=== PATIENT | female | born 1955 | race Hispanic/Latino ===

== ENCOUNTER 2019-04-27 06:20 | Day surgery (SDC) | payer OTHER ==
[2019-04-20 10:26] LABS: Absolute Lymphocytes (CBC) 1.3 K/uL (0.7-4.9); Absolute Monocytes 0.5 K/uL (0.1-1.3); Absolute Neutrophil 3.9 K/uL (1.8-8.0); Eosinophils % 2.8 % (0-4.4); Lymphocytes % 21.8 % (15.3-44.8); Monocytes % 8.3 % (3.3-12.3); RBC Red Blood Cell Count 4.38 M/uL (3.86-4.86)
[2019-04-20 10:32] LABS: BUN Blood Urea Nitrogen 11 mg/dL (7-18); Bicarbonate 30 mmol/L (21-32); Glucose Level 98 mg/dL (74-106); Potassium 3.6 mmol/L (3.5-5.1); Sodium Level 143 mmol/L (136-145)
[2019-04-20 10:34] LABS: Protime INR 0.92
--- NOTE | 2019-04-20 13:50 | EKG ---
Test Date: 2019-04-20 Test Time: 09:06:14 Sewing Department Supervisor: JOSUÉ MEASUREMENT RESULTS: Intervals: Rate: 62 CO: 152 QRSD: 82 QT: 436 QTc: 442 [place]: P: 10 CO: 152 QRS: 9 T: 27 INTERPRETIVE STATEMENTS: Normal sinus rhythm Cannot rule out Anterior infarct, age undetermined Abnormal ECG No previous ECG available for comparison Electronically Signed On 04-20-19 13:49:43 CDT by Robby Brown
[2019-04-27] MEDS ORDERED: BUPIVACAINE 0.25% PF 10 ML VIAL ONE (07:27)
[2019-04-27] MEDS ORDERED: PROPOFOL 200 MG/20 ML VIAL IV ONE (07:37)
[2019-04-27] MEDS ORDERED: ONDANSETRON 4 MG/2 ML VIAL ONE ×2 (07:37→09:54)
[2019-04-27] MEDS ORDERED: LIDOCAINE 2% MPF 5 ML VIAL ONE (07:37)
[2019-04-27] MEDS ORDERED: FENTANYL CITR 100 MCG/2 ML ONE (07:37)
[2019-04-27] MEDS ORDERED: MIDAZOLAM HCL 2 MG/2 ML INJ ONE (07:37)
--- NOTE | 2019-04-27 08:33 | P.BOP ---
Preoperative diagnosis: right knee lateral meniscus tear Postoperative diagnosis: same, right knee osteoarthritis Primary procedure: right knee arthroscopic partial lateral meniscectomy Secondary procedure: right knee arthroscopic chondroplasty patellofemoral joint Information Technology Director: NONE,NONE Estimated blood loss: 5 cc Specimen: none Findings: see dictation Anesthesia: General Complications: None Implants: none Fluids & blood products: per anesthesia record; TT: 25 mins @ 250 mmHg Transferred to: Recovery Room Condition: Good
[2019-04-27] MEDS ORDERED: SCOPOLAMINE HYDROBROMIDE PATCH TD ONE (08:46)
[2019-04-27] MEDS ORDERED: HYDROCODONE/APAP 7.5/325 MG TAB ONE (09:22)
--- NOTE | 2019-04-28 22:00 | OP ---
Date of Procedure: 04/27/2019 Surgeon: Antony Delgado MD Postoperative Diagnosis: Right knee lateral meniscus tear. Postoperative Diagnoses: 1.Right knee lateral meniscus tear. 2.Right knee chondromalacia patellofemoral joint. Procedures Performed: 1.Right knee arthroscopic partial lateral meniscectomy. 2.Right knee arthroscopic chondroplasty patellofemoral joint. Anesthesia: General LMA. Estimated Blood Loss: Less than 5 cc. Specimens: None. Complications: None. Implants: None. Fluids: Per Anesthesia record. Tourniquet Time: 45 minutes at 250 mmHg. Indication For Procedure: Ms. Willams is a 64-year-old female who presented to my clinic with signs, symptoms, and MRI findings consistent with a right knee lateral meniscus tear as well as right knee osteoarthritis. Given her mechanical symptoms, and failure of improvement with conservative treatmen t measures, I recommended operative treatment. Risks and benefits associated with operative treatmen t were discussed with the patient at length. She expressed understanding and elected to proceed with operative treatment. Description Of Procedure: After informed consent was obtained, the right lower extremity was marked in the preoperative holding area. The patient was then brought back to the operating room, transferr ed to the operating table in supine fashion, placed under general LMA anesthesia. The right lower ex tremity was then prepped and draped in usual sterile fashion. A time-out was initiated. The correct patient and procedure were confirmed and identified. The patient did receive her preop prophylactic antibiotics. The right lower extremity was then exsanguinated using an Esmarch, and the tourniquet was inflated to 250 mmHg. Standard anteromedial and anterolateral portals were created and a diagnos tic arthroscopy was performed. The arthroscope was brought into the patellofemoral joint. The patie nt was noted to have grade 3 chondromalacia changes of both the undersurface of patella and trochlear groove. A chondroplasty was performed on the undersurface of patella and trochlear groove using an arthroscopic shaver to stable cartilage borders and removing all loose chondral flaps. Arthroscope w as brought into both medial and lateral gutters. There were no loose bodies noted within the gutters . The arthroscope was then brought to the medial compartment. The patient was noted to have grade 3 chondromalacia changes on the medial femoral condyle. There was no significant chondromalacia of th e medial tibial plateau noted. The medial meniscus was found to be stable to probe. The arthroscope was brought into the intercondylar notch. The patient was noted to have intact ACL and PCL. The ar throscope was brought into the lateral compartment. The patient was noted to have a complex tear of the posterior horn of the lateral meniscus. There was significant amount of lateral meniscus tissue, which was seen within the posterior horn. The loose borders were then debrided using meniscal biter s and an arthroscopic shaver with some in the posterior lateral corner just in front of po pliteus. The remaining meniscal tissue was stable to probe. All loose was removed using an arthroscopic shaver. Arthroscopic instruments were then removed without complication. The wound was then irrigated with normal saline. Portals were approximated using a 4-0 Monocryl. Sterile dres sings were applied. Tourniquet was let down. The patient was awaken and transferred to PACU in stab le condition. Postoperative Plan: The patient will begin physical therapy per the patellofemoral protocol. She wi ll follow up in 2 weeks for wound check. GALE/MODL Voice ID: [id number] Report ID: [id number]
== END 2019-04-27 10:20 | disposition home or self-care (01) ==
LOC: OR 06:20
PROVIDERS: ATTEND Orthopaedic Surgery Sports Medicine
PROC: 0SBC4ZZ Excision of Right Knee Joint, Percutaneous Endoscopic Approach (ICD-10-PCS; principal; 2019-04-27 07:30)
DX: S83.281A Other tear of lateral meniscus, current injury, right knee, initial encounter (principal); M22.41 Chondromalacia patellae, right knee; M17.11 Unilateral primary osteoarthritis, right knee; I10 Essential (primary) hypertension; E78.00 Pure hypercholesterolemia, unspecified; E07.9 Disorder of thyroid, unspecified; Z98.84 Bariatric surgery status; Z80.9 Family history of malignant neoplasm, unspecified
CPT/HCPCS: 36415; 80048; 85025; 85610; 85730; 93005; J2250; J2405; J2704; J3010

== ENCOUNTER 2022-09-02 21:17 | Inpatient (IN) | payer OTHER ==
--- OUTSIDE RECORDS SUMMARY | 2022-09-02 21:22 | XMS REPORT | Continuity of Care Document ---
:1955 Author Organization [facility] t Address [address] [place] [address] Care Team Providers Name Role Phone Erik Snell Primary Care Physician MARC ROWAN Attending Clinician Unavailable Marc Rowan MD Attending Clinician Only, Adc Test Attending Clinician Unavailable Doctor Unassigned, [place] Attending Clinician Unavailable MARC ROWAN Admitting Clinician Unavailable Marc Rowan MD Admitting Clinician Payers Payer Name Policy Type Policy Effective Date Expiration Date Sour ce Number COMMERCIAL [id number] 2019 NON-CONTRACT 00:00:00 [employer] [id number] Common Spir it - [facility] Problems Condition Condition Condition Status Onset Resolution Last Treating Co mments Source Name Details Category Date Date Treatment Clinician Date Osteoarthr Osteoarthr Disease Active U nivers itis of itis of 8-09 ity of knee knee 00:00: [address] Branch [id number] Primary Problem Active Comm on osteoarthr Spirit itis of - [facility] right knee [facility] [id number] Other tear Problem Active Co mmon of lateral Spirit meniscus, - [facility] current [facility], [place] subsequent encounter [id number] Primary Problem Active Comm on osteoarthr Spirit itis of - [facility]I left knee [facility] Arthralgia Acute pain Problem Active C ommon of the of right Spirit lower leg knee - [facility] Allergies, Adverse Reactions, Alerts Allergy Allergy Status Severity Reaction(s) Onset Inactive Treating Comm ents Source Name Type Date Date Clinician NO KNOWN Drug Active Univers ALLERGIE Class ity of S [facility] Social History Social Habit Start Date Stop Date Quantity Comments Source History SDOH University o f Alcohol Frequency [place] [facility] History SDOH University o f Alcohol Std [place] [facility] Drinks Branch History SDOH University o f Alcohol Binge [place] [facility] Branch History of Common Spirit - Tobacco Use [facility] Sex Assigned At Common Sp roshni - [facility] Alcohol intake 2022-06-29 2022-06-29 Current drinker Unive rsity of 00:00:00 00:00:00 of alcohol [facility] (finding) Branch Alcohol Comment 2022-06-29 2022-06-29 rarely Universit y of 00:00:00 00:00:00 [facility] Exposure to 2022-06-14 2022-06-24 Not sure University of SARS-CoV-2 00:00:00 09:13:00 [facility] (event) [place] Tobacco use and 2022-06-09 2022-06-09 Smokeless tobacco Un iversity of exposure 00:00:00 00:00:00 non-user [facility] Smoking Status Start Date Stop Date Source Never Smoker [facility] Medications Ordered Filled Start Stop Current Ordering Indication Dosage Frequency Signature Comments Components Source Medication Medication Date Date Medication? Clinician (SIG) Name Name Hyalgan 20 Hyalgan 20 No 20mg C ommon mg mg 8-30 Spirit 00:00: - [facility] Hyalgan 20 Hyalgan 20 No 20mg C ommon mg mg 8-23 Spirit 00:00: - [facility] Hyalgan 20 Hyalgan 20 No 20mg C ommon mg mg 8-23 Spirit 00:00: - [facility] Bupivicaine Bupivicaine No 25mg [place] 8-16 Spirit 00:00: - [facility] Hyalgan 20 Hyalgan 20 No 20mg C ommon mg mg 8-16 Spirit 00:00: - [facility] 00 [facility] Kenalog Kenalog 2021-0 No 40mg Common (Triamcinol (Triamcinol 8-16 S pirit one) one) 00:00: - [facility]I 00 [facility] Bupivicaine Bupivicaine 2021-0 No 25mg Common [place] 8-16 Spirit 00:00: - [facility] 00 [facility] Hyalgan 20 Hyalgan 20 2021-0 No 20mg C ommon mg mg 8-16 Spirit 00:00: - [facility] 00 [facility] Kenalog Kenalog 2021-0 No 40mg Common (Triamcinol (Triamcinol 8-16 S pirit one) one) 00:00: - [facility]I 00 [facility] Hyalgan 20 Hyalgan 20 2021-0 No 20mg C ommon mg mg 8-16 Spirit 00:00: - [facility] Kenalog Kenalog 2021-0 No 40mg Common (Triamcinol (Triamcinol 8-16 S pirit one) one) 00:00: - [facility] Bupivicaine Bupivicaine 2021-0 No 25mg Common [place] 8-16 Spirit 00:00: - [facility] 00 [facility] simethicone 2021- No PRN, Unive rs (GAS RELIEF 06-29 Starting ity of (SIMETHICON 19:08: 19:25 on Tue Nolberto as E)) 40 00 :38 06/29/22 at Medical mg/0.6 mL 1408, Branch drops Until Tue06/29/22 at 1425, Routine, Intra-op lactated 2021- [facility] IV 06-29 mL/hr, ity of infusion 16:45: 16:54 1,000 mL, Nolberto as 1,000 mL 00 :00 IV Medical Infusion, Branch ONCE, 1 dose, On Tue06/29/22 at 1145, Routine, DSU Pre-op lactated 2021- No 1000[facility] ringers IV 06-29- mL/hr, ity of infusion 16:45: 16:54 1,000 mL, Nolberto as 1,000 mL 00 :00 IV Medical Infusion, Branch ONCE, 1 dose, On Tue06/29/22 at 1145, Routine, DSU Pre-op lisinopriL- 2021-0 Yes 1{tbl} Take 1 Un amee hydrochloro 8-09 tablet by ity of thiazide 15:14: mouth in [place] 20-25 mg 02 the Medical per tablet morning. Bran h amLODIPine 0 Yes 10mg Take 10 mg U nivers 10 mg 8-09 by mouth ity of tablet 15:14: in the [place] 02 morning. Medical Branch rosuvastati 0 Yes 5mg Take 5 mg U nivers n 5 mg 8-09 by mouth ity of tablet 15:14: in the [place] morning. Medical Branch escitalopra 0 Yes 10mg Take 10 mg Univers m oxalate 8-09 by mouth ity of 10 mg 15:14: in the [place] tablet 02 morning. Medical Branch meloxicam Yes 1{tbl} Take 1 Univ ers 7.5 mg 8-09 tablet by ity of tablet 15:14: mouth in [place] 02 the Medical morning. Branch levothyroxi Yes 50ug Take 50 Uni vers ne 50 mcg 8-09 mcg by ity of tablet 15:14: mouth [place] 02 every Medical morning. Branch lisinopriL- 0 Yes 1{tbl} Take 1 Un amee hydrochloro 8-09 tablet by ity of thiazide 15:14: mouth in [place] 20-25 mg 02 the Medical per tablet morning. Bran h amLODIPine Yes 10mg Take 10 mg U nivers 10 mg 8-09 by mouth ity of tablet 15:14: in the [place] morning. Medical Branch rosuvastati 0 Yes 5mg Take 5 mg U nivers n 5 mg 8-09 by mouth ity of tablet 15:14: in the [place] morning. Medical Branch escitalopra 0 Yes 10mg Take 10 mg Univers m oxalate 8-09 by mouth ity of 10 mg 15:14: in the [place] tablet 02 morning. Medical Branch meloxicam 0 Yes 1{tbl} Take 1 Univ ers 7.5 mg 8-09 tablet by ity of tablet 15:14: mouth in [place] 02 the Medical morning. [place] levothyroxi Yes 50ug Take 50 Uni vers ne 50 mcg 8-09 mcg by ity of tablet 15:14: mouth [place] 02 every Medical morning. [place] water for 2021- No PRN, Univers irrigation 06-29 Starting ity of irrigation 06:48: 19:25 on Tue s solution 00 :38 06/29/22 at Medica l 0148, Branch Until Tue06/29/22 at 1425, Routine, Intra-op levothyroxi Yes 50ug Take 50 Uni vers ne 50 mcg 8-04 mcg by ity of tablet 09:11: mouth [place] 16 every Medical morning. [place] levothyroxi 0 Yes 50ug Take 50 Uni vers ne 50 mcg 8-04 mcg by ity of tablet 09:11: mouth [place] 16 every Medical morning. [place] meloxicam Yes 1{tbl} Take 1 Univ ers 7.5 mg 8-04 tablet by ity of tablet 09:10: mouth in [place] 03 the Medical morning. [place] meloxicam 0 Yes 1{tbl} Take 1 Univ ers 7.5 mg 8-04 tablet by ity of tablet 09:10: mouth in [place] 03 the Medical morning. [place] lisinopriL- 0 Yes 1{tbl} Take 1 Un amee hydrochloro 8-04 tablet by ity of thiazide 09:08: mouth in [place] 20-25 mg 08 the Medical per tablet morning. [facility] amLODIPine 0 Yes 10mg Take 10 mg U nivers 10 mg 8-04 by mouth ity of tablet 09:08: in the [place] 08 morning. Medical Branch rosuvastati 0 Yes 5mg Take 5 mg U nivers n 5 mg 8-04 by mouth ity of tablet 09:08: in the [place] 08 morning. Medical Branch escitalopra 0 Yes 10mg Take 10 mg Univers m oxalate 8-04 by mouth ity of 10 mg 09:08: in the [place] tablet 08 morning. Medical Branch lisinopriL- 0 Yes 1{tbl} Take 1 Un amee hydrochloro 8-04 tablet by ity of thiazide 09:08: mouth in [place] 20-25 mg 08 the Medical per tablet morning. Bran h amLODIPine 2021-0 Yes 10mg Take 10 mg U nivers 10 mg 8-04 by mouth ity of tablet 09:08: in the [place] 08 morning. Medical Branch rosuvastati 2021-0 Yes 5mg Take 5 mg U nivers n 5 mg 8-04 by mouth ity of tablet 09:08: in the [place] 08 morning. Medical Branch escitalopra 2021-0 Yes 10mg Take 10 mg Univers m oxalate 8-04 by mouth ity of 10 mg 09:08: in the [place] tablet 08 morning. Medical Branch lisinopriL- 2021-0 Yes 1{tbl} Take 1 Un amee hydrochloro 7-21 tablet by ity of thiazide 10:47: mouth in [place] 20-25 mg 31 the Medical per tablet morning. Bran h amLODIPine 0 Yes 10mg Take 10 mg U nivers 10 mg 7-21 by mouth ity of tablet 10:47: in the [place] 31 morning. Medical Branch rosuvastati 2021-0 Yes 5mg Take 5 mg U nivers n 5 mg 7-21 by mouth ity of tablet 10:47: in the [place] 31 morning. Medical Branch escitalopra 2021-0 Yes 10mg Take 10 mg Univers m oxalate 7-21 by mouth ity of 10 mg 10:47: in the [place] tablet 31 morning. Medical Branch Hyalgan 20 Hyalgan 20 2020-11 No 20mg C ommon mg mg 11-29 Spirit 00:00: - [facility] Hyalgan 20 Hyalgan 20 2020-11 No 20mg C ommon mg mg 11-29 Spirit 00:00: - [facility] Hyalgan 20 Hyalgan 20 2020-11 No 20mg C ommon mg mg 11-29 Spirit 00:00: - [facility] Hyalgan 20 Hyalgan 20 2020-11 No 20mg C ommon mg mg 11-29 Spirit 00:00: - [facility] Hyalgan 20 Hyalgan 20 2020-11 No 20mg C ommon mg mg 11-29 Spirit 00:00: - [facility] Hyalgan 20 Hyalgan 20 2020-11 No 20mg C ommon mg mg 11-29 Spirit 00:00: - [facility] Hyalgan 20 Hyalgan 20 2020-11 No 20mg C ommon mg mg 11-22 Spirit 00:00: - [facility] Hyalgan 20 Hyalgan 20 2020-11 No 20mg C ommon mg mg 11-22 Spirit 00:00: - [facility] Hyalgan 20 Hyalgan 20 2020-11 No 20mg C ommon mg mg 11-22 Spirit 00:00: - [facility] Hyalgan 20 Hyalgan 20 2020-11 No 20mg C ommon mg mg 11-22 Spirit 00:00: - [facility] Hyalgan 20 Hyalgan 20 2020-11 No 20mg C ommon mg mg 11-22 Spirit 00:00: - [facility] Hyalgan 20 Hyalgan 20 2020-11 No 20mg C ommon mg mg 11-22 Spirit 00:00: - [facility] Hyalgan 20 Hyalgan 20 2020-11 No 20mg C ommon mg mg 0- Spirit 00:00: - [facility] Hyalgan 20 Hyalgan 20 2020-11 No 20mg C ommon mg mg 0- Spirit 00:00: - [facility] Hyalgan 20 Hyalgan 20 2020-11 No 20mg C ommon mg mg 0- Spirit 00:00: - [facility] Hyalgan 20 Hyalgan 20 2020-11 No 20mg C ommon mg mg 0- Spirit 00:00: - [facility] Hyalgan 20 Hyalgan 20 2020-11 No 20mg C ommon mg mg 0- Spirit 00:00: - [facility]I 00 [facility] Hyalgan 20 Hyalgan 20 2020-11 No 20mg C ommon mg mg 0- Spirit 00:00: - [facility] Kenalog Kenalog 0 No 40mg Common (Triamcinol (Triamcinol - S pirit one) one) 00:00: - [facility] Bupivicaine Bupivicaine No 2.5mg Common [place] - Spirit 00:00: - [facility] Kenalog Kenalog 2021-0 No 40mg Common (Triamcinol (Triamcinol 8-31 S pirit one) one) 00:00: - [facility]I 00 [facility] Bupivicaine Bupivicaine 2020-0 No 2.5mg Common [place] 8-31 Spirit 00:00: - [facility]I 00 [facility] Kenalog Kenalog 2020-0 No 40mg Common (Triamcinol (Triamcinol 8-31 S pirit one) one) 00:00: - [facility]I 00 [facility] Bupivicaine Bupivicaine 2020-0 No 2.5mg Common [place] 8-31 Spirit 00:00: - [facility]I 00 [facility] Bupivicaine Bupivicaine 2020-0 No 2.5mg Common [place] 8-31 Spirit 00:00: - [facility]I 00 [facility] Kenalog Kenalog 2020-0 No 40mg Common (Triamcinol (Triamcinol 8-31 S pirit one) one) 00:00: - [facility]I 00 [facility] Bupivicaine Bupivicaine 2020-0 No 2.5mg Common [place] 8-31 Spirit 00:00: - [facility]I 00 [facility] Kenalog Kenalog 2020-0 No 40mg Common (Triamcinol (Triamcinol 8-31 S pirit one) one) 00:00: - [facility]I 00 [facility] Bupivicaine Bupivicaine 2020-0 No 2.5mg Common [place] 8-31 Spirit 00:00: - [facility]I 00 [facility] Kenalog Kenalog 2020-0 No 40mg Common (Triamcinol (Triamcinol 8-31 S pirit one) one) 00:00: - [facility]I 00 [facility] Hyalgan 20 Hyalgan 20 2020-0 No 20mg C ommon mg mg 3-08 Spirit 00:00: - [facility]I 00 [facility] Hyalgan 20 Hyalgan 20 2020-0 No 20mg C ommon mg mg 3-08 Spirit 00:00: - [facility]I 00 [facility] Hyalgan 20 Hyalgan 20 2020-0 No 20mg C ommon mg mg 3-08 Spirit 00:00: - [facility]I 00 [facility] Hyalgan 20 Hyalgan 20 2020-0 No 20mg C ommon mg mg 3 Spirit 00:00: - [facility] Hyalgan 20 Hyalgan 20 2020-0 No 20mg C ommon mg mg 3 Spirit 00:00: - [facility] Hyalgan 20 Hyalgan 20 2020-0 No 20mg C ommon mg mg 01-26 Spirit 00:00: - [facility] Hyalgan 20 Hyalgan 20 2020-0 No 20mg C ommon mg mg 3 Spirit 00:00: - [facility] Hyalgan 20 Hyalgan 20 2020-0 No 20mg C ommon mg mg 01-19 Spirit 00:00: - [facility] Hyalgan 20 Hyalgan 20 2020-0 No 20mg C ommon mg mg 01-19 Spirit 00:00: - [facility] Hyalgan 20 Hyalgan 20 2020-0 No 20mg C ommon mg mg 3 Spirit 00:00: - [facility] Hyalgan 20 Hyalgan 20 2020-0 No 20mg C ommon mg mg 01-19 Spirit 00:00: - [facility] Hyalgan 20 Hyalgan 20 2020-0 No 20mg C ommon mg mg 01-19 Spirit 00:00: - [facility] Bupivicaine Bupivicaine 2020-0 No 2.5mg Common [place] 2- Spirit 00:00: - [facility] Hyalgan 20 Hyalgan 20 2020-0 No 20mg C ommon mg mg 01-12 Spirit 00:00: - [facility] Kenalog Kenalog 2020-0 No 40mg Common (Triamcinol (Triamcinol 2-22 S pirit one) one) 00:00: - [facility] Bupivicaine Bupivicaine 2020-0 No 2.5mg Common [place] 2- Spirit 00:00: - [facility] Hyalgan 20 Hyalgan 20 2020-0 No 20mg C ommon mg mg 2 Spirit 00:00: - [facility] Kenalog Kenalog 2020-0 No 40mg Common (Triamcinol (Triamcinol 2-22 S pirit one) one) 00:00: - [facility]I 00 [facility] Bupivicaine Bupivicaine 2020-0 No 2.5mg Common [place] 2-22 Spirit 00:00: - [facility]I 00 [facility] Hyalgan 20 Hyalgan 20 2020-0 No 20mg C ommon mg mg 2-22 Spirit 00:00: - [facility]I 00 [facility] Kenalog Kenalog 2020-0 No 40mg Common (Triamcinol (Triamcinol 2-22 S pirit one) one) 00:00: - [facility]I 00 [facility] Bupivicaine Bupivicaine 2020-0 No 2.5mg Common [place] 2-22 Spirit 00:00: - [facility]I 00 [facility] Hyalgan 20 Hyalgan 20 2020-0 No 20mg C ommon mg mg 2-22 Spirit 00:00: - [facility]I 00 [facility] Kenalog Kenalog 2020-0 No 40mg Common (Triamcinol (Triamcinol 2-22 S pirit one) one) 00:00: - [facility]I 00 [facility] Bupivicaine Bupivicaine 2020-0 No 2.5mg Common [place] 2-22 Spirit 00:00: - [facility] 00 [facility] Hyalgan 20 Hyalgan 20 2020-0 No 20mg C ommon mg mg 2-22 Spirit 00:00: - [facility]I 00 [facility] Kenalog Kenalog 2020-0 No 40mg Common (Triamcinol (Triamcinol 2-22 S pirit one) one) 00:00: - [facility]I 00 [facility] Bupivicaine Bupivicaine 2020-0 No 2.5mg Common [place] 2-22 Spirit 00:00: - [facility]I 00 [facility] Hyalgan 20 Hyalgan 20 2020-0 No 20mg C ommon mg mg 2-22 Spirit 00:00: - [facility]I 00 [facility] Kenalog Kenalog 2020-0 No 40mg Common (Triamcinol (Triamcinol 2-22 S pirit one) one) 00:00: - [facility]I 00 [facility] Hyalgan 20 Hyalgan 20 2019-0 No 20mg C ommon mg mg 8-04 Spirit 00:00: - [facility] Hyalgan 20 Hyalgan 20 2020-0 No 20mg C ommon mg mg 06-24 Spirit 00:00: - [facility] Hyalgan 20 Hyalgan 20 2020-0 No 20mg C ommon mg mg 06-24 Spirit 00:00: - [facility] Hyalgan 20 Hyalgan 20 2020-0 No 20mg C ommon mg mg 06-24 Spirit 00:00: - [facility] Hyalgan 20 Hyalgan 20 2020-0 No 20mg C ommon mg mg 06-24 Spirit 00:00: - [facility] Hyalgan 20 Hyalgan 20 2020-0 No 20mg C ommon mg mg 06-24 Spirit 00:00: - [facility] Hyalgan 20 Hyalgan 20 2020-0 No 2mL C ommon mg mg 06-17 Spirit 00:00: - [facility] Hyalgan 20 Hyalgan 20 2020-0 No 2mL C ommon mg mg 06-17 Spirit 00:00: - [facility] Hyalgan 20 Hyalgan 20 2020-0 No 2mL C ommon mg mg 06-17 Spirit 00:00: - [facility] Hyalgan 20 Hyalgan 20 2020-0 No 2mL C ommon mg mg 06-17 Spirit 00:00: - [facility] Hyalgan 20 Hyalgan 20 2020-0 No 2mL C ommon mg mg 06-17 Spirit 00:00: - [facility] Hyalgan 20 Hyalgan 20 2020-0 No 2mL C ommon mg mg 06-17 Spirit 00:00: - [facility] Kenalog Kenalog 2020-0 No 40mg Common (Triamcinol (Triamcinol 06-10 S pirit one) one) 00:00: - [facility] Hyalgan 20 Hyalgan 20 2020-0 No 2mL C ommon mg mg 06-10 Spirit 00:00: - [facility] Bupivicaine Bupivicaine 2020-0 No 4mL Common [place] 06-10 Spirit 00:00: - [facility] Kenalog Kenalog 2020-0 No 40mg Common (Triamcinol (Triamcinol 7-21 S pirit one) one) 00:00: - [facility]I 00 [facility] Hyalgan 20 Hyalgan 20 2020-0 No 2mL C ommon mg mg 06-10 Spirit 00:00: - [facility]I 00 [facility] Bupivicaine Bupivicaine 2020-0 No 4mL Common [place] 7- Spirit 00:00: - [facility]I 00 [facility] Kenalog Kenalog 2020-0 No 40mg Common (Triamcinol (Triamcinol 7-21 S pirit one) one) 00:00: - [facility]I 00 [facility] Hyalgan 20 Hyalgan 20 2020-0 No 2mL C ommon mg mg 06-10 Spirit 00:00: - [facility]I 00 [facility] Bupivicaine Bupivicaine 2020-0 No 4mL Common [place] 06-10 Spirit 00:00: - [facility]I 00 [facility] Kenalog Kenalog 2020-0 No 40mg Common (Triamcinol (Triamcinol 7-21 S pirit one) one) 00:00: - [facility]I 00 [facility] Hyalgan 20 Hyalgan 20 2020-0 No 2mL C ommon mg mg 06-10 Spirit 00:00: - [facility]I 00 [facility] Bupivicaine Bupivicaine 2020-0 No 4mL Common [place] 06-10 Spirit 00:00: - [facility]I 00 [facility] Kenalog Kenalog 2020-0 No 40mg Common (Triamcinol (Triamcinol 7-21 S pirit one) one) 00:00: - [facility]I 00 [facility] Bupivicaine Bupivicaine 2020-0 No 4mL Common [place] 06-10 Spirit 00:00: - [facility]I 00 [facility] Hyalgan 20 Hyalgan 20 2020-0 No 2mL C ommon mg mg 06-10 Spirit 00:00: - [facility]I 00 [facility] Bupivicaine Bupivicaine 2020-0 No 4mL Common [place] 06-10 Spirit 00:00: - [facility]I 00 [facility] Kenalog Kenalog 2020-0 No 40mg Common (Triamcinol (Triamcinol 7-21 S pirit one) one) 00:00: - [facility]I 00 [facility] Hyalgan 20 Hyalgan 20 2020-0 No 2mL C ommon mg mg 7-21 Spirit 00:00: - [facility]I 00 [facility] Kenalog Kenalog 2020-0 No 40mg Common (Triamcinol (Triamcinol 3-09 S pirit one) one) 00:00: - [facility]I 00 [facility] Bupivicaine Bupivicaine 2020-0 No 4mL Common [place] 3-09 Spirit 00:00: - [facility]I 00 [facility] Kenalog Kenalog 2020-0 No 40mg Common (Triamcinol (Triamcinol 3-09 S pirit one) one) 00:00: - [facility]I 00 [facility] Bupivicaine Bupivicaine 2020-0 No 4mL Common [place] 3-09 Spirit 00:00: - [facility]I 00 [facility] Kenalog Kenalog 2020-0 No 40mg Common (Triamcinol (Triamcinol 3-09 S pirit one) one) 00:00: - [facility]I 00 [facility] Bupivicaine Bupivicaine 2020-0 No 4mL Common [place] 3-09 Spirit 00:00: - [facility]I 00 [facility] Kenalog Kenalog 2020-0 No 40mg Common (Triamcinol (Triamcinol 3-09 S pirit one) one) 00:00: - [facility]I 00 [facility] Bupivicaine Bupivicaine 2020-0 No 4mL Common [place] 3-09 Spirit 00:00: - [facility]I 00 [facility] Bupivicaine Bupivicaine 2020-0 No 4mL Common [place] 3-09 Spirit 00:00: - [facility] 00 [facility] Kenalog Kenalog 2020-0 No 40mg Common (Triamcinol (Triamcinol 3-09 S pirit one) one) 00:00: - [facility]I 00 [facility] Bupivicaine Bupivicaine 2020-0 No 4mL Common [place] 3-09 Spirit 00:00: - [facility] 00 [facility] Kenalog Kenalog 2020-0 No 40mg Common (Triamcinol (Triamcinol 3-09 S pirit one) one) 00:00: - [facility]I 00 [facility] LIDOCAINE LIDOCAINE 2019-0 No 10mg Com mon HCL 10MG/ML HCL 10MG/ML 7-23 S pirit 00:00: - CHI 00 [facility] Kenalog Kenalog 2019-0 No 40mg Common (Triamcinol (Triamcinol 7-23 S pirit one) one) 00:00: - [facility]I 00 [facility] LIDOCAINE LIDOCAINE 2019-0 No 10mg Com mon HCL 10MG/ML HCL 10MG/ML 7-23 S pirit 00:00: - CHI 00 [facility] Kenalog Kenalog 2019-0 No 40mg Common (Triamcinol (Triamcinol 7-23 S pirit one) one) 00:00: - [facility] 00 [facility] LIDOCAINE LIDOCAINE 2019-0 No 10mg Com mon HCL 10MG/ML HCL 10MG/ML 7-23 S pirit 00:00: - [facility]I 00 [facility] Kenalog Kenalog 2019-0 No 40mg Common (Triamcinol (Triamcinol 7-23 S pirit one) one) 00:00: - [facility] 00 [facility] LIDOCAINE LIDOCAINE 2019-0 No 10mg Com mon HCL 10MG/ML HCL 10MG/ML 7-23 S pirit 00:00: - [facility]I 00 [facility] Kenalog Kenalog 2019-0 No 40mg Common (Triamcinol (Triamcinol 7-23 S pirit one) one) 00:00: - [facility] 00 [facility] LIDOCAINE LIDOCAINE 2019-0 No 10mg Com mon HCL 10MG/ML HCL 10MG/ML 7-23 S pirit 00:00: - [facility]I 00 [facility] Kenalog Kenalog 2019-0 No 40mg Common (Triamcinol (Triamcinol 7-23 S pirit one) one) 00:00: - [facility] 00 [facility] LIDOCAINE LIDOCAINE 2019-0 No 10mg Com mon HCL 10MG/ML HCL 10MG/ML 7-23 S pirit 00:00: - [facility] 00 [facility] Kenalog Kenalog 2019-0 No 40mg Common (Triamcinol (Triamcinol 7-23 S pirit one) one) 00:00: - [facility] 00 [facility] Levothyroxi Levothyroxi No ne Sodium ne Sodium Simvastatin Simvastatin No Meloxicam Meloxicam No 7.5 MG 7.5 MG Lisinopril- Lisinopril- No hydroCHLORO hydroCHLORO thiazide thiazide Valium Valium No amLODIPine amLODIPine No Besylate Besylate Meloxicam Meloxicam No amLODIPine amLODIPine No amLODIPine Besylate Besylate Besylate Lisinopril- Lisinopril- No Lisinopril hydroCHLORO hydroCHLORO -hydroCHLO thiazide thiazide ROthiazide Levothyroxi Levothyroxi No Levothyrox ne Sodium ne Sodium ine Sodium Valium Valium No Valium Simvastatin Simvastatin No Simvastati n Meloxicam Meloxicam No Meloxicam Meloxicam Meloxicam No Meloxicam 7.5 MG 7.5 MG 7.5 MG amLODIPine amLODIPine No amLODIPine Besylate Besylate Besylate Levothyroxi Levothyroxi No Levothyrox ne Sodium ne Sodium ine Sodium Meloxicam Meloxicam No Meloxicam 7.5 MG 7.5 MG 7.5 MG Valium Valium No Valium Simvastatin Simvastatin No Simvastati n Meloxicam Meloxicam No Meloxicam Lisinopril- Lisinopril- No Lisinopril hydroCHLORO hydroCHLORO -hydroCHLO thiazide thiazide ROthiazide Meloxicam Meloxicam No Meloxicam Simvastatin Simvastatin No Simvastati n Levothyroxi Levothyroxi No Levothyrox ne Sodium ne Sodium ine Sodium Lisinopril- Lisinopril- No Lisinopril hydroCHLORO hydroCHLORO -hydroCHLO thiazide thiazide ROthiazide Valium Valium No Valium Meloxicam Meloxicam No Meloxicam 7.5 MG 7.5 MG 7.5 MG amLODIPine amLODIPine No amLODIPine Besylate Besylate Besylate Meloxicam Meloxicam No Meloxicam Simvastatin Simvastatin No Simvastati n Levothyroxi Levothyroxi No Levothyrox ne Sodium ne Sodium ine Sodium Lisinopril- Lisinopril- No Lisinopril hydroCHLORO hydroCHLORO -hydroCHLO thiazide thiazide ROthiazide Valium Valium No Valium Meloxicam Meloxicam No Meloxicam 7.5 MG 7.5 MG 7.5 MG amLODIPine amLODIPine No amLODIPine Besylate Besylate Besylate Simvastatin Simvastatin No Simvastati n Lisinopril- Lisinopril- No Lisinopril hydroCHLORO hydroCHLORO -hydroCHLO thiazide thiazide ROthiazide Valium Valium No Valium Levothyroxi Levothyroxi No Levothyrox ne Sodium ne Sodium ine Sodium amLODIPine amLODIPine No amLODIPine Besylate Besylate Besylate Meloxicam Meloxicam No Meloxicam 7.5 MG 7.5 MG 7.5 MG Meloxicam Meloxicam No Meloxicam amLODIPine amLODIPine No amLODIPine Besylate Besylate Besylate Valium Valium No Valium Lisinopril- Lisinopril- No Lisinopril hydroCHLORO hydroCHLORO -hydroCHLO thiazide thiazide ROthiazide Meloxicam Meloxicam No Meloxicam 7.5 MG 7.5 MG 7.5 MG Simvastatin Simvastatin No Simvastati n Levothyroxi Levothyroxi No Levothyrox ne Sodium ne Sodium ine Sodium Meloxicam Meloxicam No Meloxicam Valium Valium No Valium amLODIPine amLODIPine No amLODIPine Besylate Besylate Besylate Meloxicam Meloxicam No Meloxicam 7.5 MG 7.5 MG 7.5 MG Lisinopril- Lisinopril- No Lisinopril hydroCHLORO hydroCHLORO -hydroCHLO thiazide thiazide ROthiazide Meloxicam Meloxicam No Meloxicam Levothyroxi Levothyroxi No Levothyrox ne Sodium ne Sodium ine Sodium Simvastatin Simvastatin No Simvastati n Valium Valium No Valium Levothyroxi Levothyroxi No Levothyrox ne Sodium ne Sodium ine Sodium Lisinopril- Lisinopril- No Lisinopril hydroCHLORO hydroCHLORO -hydroCHLO thiazide thiazide ROthiazide Meloxicam Meloxicam No Meloxicam 7.5 MG 7.5 MG 7.5 MG Meloxicam Meloxicam No Meloxicam amLODIPine amLODIPine No amLODIPine Besylate Besylate Besylate Simvastatin Simvastatin No Simvastati n Simvastatin Simvastatin No Simvastati n Meloxicam Meloxicam No Meloxicam 7.5 MG 7.5 MG 7.5 MG Levothyroxi Levothyroxi No Levothyrox ne Sodium ne Sodium ine Sodium Valium Valium No Valium amLODIPine amLODIPine No amLODIPine Besylate Besylate Besylate Lisinopril- Lisinopril- No Lisinopril hydroCHLORO hydroCHLORO -hydroCHLO thiazide thiazide ROthiazide Meloxicam Meloxicam No Meloxicam Immunizations Ordered Immunization Filled Immunization Date Status Commen ts Source Name Name Hyalgan 20 mg Hyalgan 20 mg 2021-09-15 [facility]pleted [facility] 09:[facility] Kenalog Kenalog 2021-07-21 [facility]pleted [facility] (Triamcin[facility] (Triamcinolone) 10:31:00 [facility] Bupivicaine [place] Bupivicaine [place] 2021-07-21 Completed [facility] 10:31:00 - [facility] Kenalog Kenalog 2021-07-21 Completed [facility] (Triamcinolone) (Triamcinolone) 10:31:00 [facility] Bupivicaine [place] Bupivicaine [place] 2021-07-21 Completed [facility] 10:31:00 [facility] Hyalgan 20 mg Hyalgan 20 mg 2021-01-26 Completed [facility] 08:39:00 - [facility] Hyalgan 20 mg Hyalgan 20 mg 2021-01-26 Completed [facility] 08:39:00 [facility] Hyalgan 20 mg Hyalgan 20 mg 2021-01-19 Completed [facility] 10:01:00 [facility] Hyalgan 20 mg Hyalgan 20 mg 2021-01-19 Completed [facility] 10:01:00 [facility] Bupivicaine [place] Bupivicaine [place] 2021-01-12 [facility] 09:49:00 - [facility] Bupivicaine [place] Bupivicaine [place] 2021-01-12 [facility] 09:49:00 [facility] Kenalog Kenalog 2021-01-12 Completed [facility] (Triamcinolone) (Triamcinolone) 09:48:00 [facility] Hyalgan 20 mg Hyalgan 20 mg 2021-01-12 Completed [facility] 09:48:00 [facility] Kenalog Kenalog 2021-01-12 Completed [facility] (Triamcinolone) (Triamcinolone) 09:48:00 [facility] Hyalgan 20 mg Hyalgan 20 mg 2021-01-12 Completed [facility] 09:48:00 [facility] Hyalgan 20 mg Hyalgan 20 mg 2020-06-24 Completed [facility] 10:45:00 [facility] Hyalgan 20 mg Hyalgan 20 mg 2020-06-24 Completed [facility] 10:45:00 [facility] Hyalgan 20 mg Hyalgan 20 mg 2020-06-17 Completed [facility] 11:00:00 [facility] Hyalgan 20 mg Hyalgan 20 mg 2020-06-17 Completed [facility] 11:00:00 [facility] Bupivicaine [place] Bupivicaine [place] 2020-06-10 [facility]pleted [facility] 11:38:00 [facility] Bupivicaine [place] Bupivicaine [place] 2020-06-10 Completed [facility] 11:38:00 [facility] Kenalog Kenalog 2020-06-10 Completed [facility] (Triamcinolone) (Triamcinolone) 11:36:00 [facility] Kenalog Kenalog 2020-06-10 Completed [facility] (Triamcinolone) (Triamcinolone) 11:36:00 [facility] Hyalgan 20 mg Hyalgan 20 mg 2020-06-10 Completed [facility] 11:25:00 [facility] Hyalgan 20 mg Hyalgan 20 mg 2020-06-10 Completed [facility] 11:25: [facility] Bupivicaine [place] Bupivicaine [place] 2020-01-28 Completed [facility] 11:02: [facility] Bupivicaine [place] Bupivicaine [place] 2020-01-28 Completed [facility] 11:02:00 [facility] Kenalog Kenalog 2020-01-28 Completed [facility] (Triamcinolone) (Triamcinolone) 11:00:00 [facility] Kenalog Kenalog 2020-01-28 Completed [facility] (Triamcinolone) (Triamcinolone) 11:00:00 [facility] LIDOCAINE HCL LIDOCAINE HCL 2019-06-12 Completed [facility] 10MG/ML 10MG/ML 11:32:00 [facility] LIDOCAINE HCL LIDOCAINE HCL 2019-06-12 Completed [facility] 10MG/ML 10MG/ML 11:32:00 [facility] Zahraa Vital 2019-06-12 Completed [facility] (Triamcinolone) (Triamcinolone) 11:31:00 [facility] Zahraa Vital 2019-06-12 Completed [facility] (Triamcinolone) (Triamcinolone) 11:31:00 [facility] Vital Signs Vital Name Observation Time Observation Value Comments Source height 2022-07-20 09:15:00 63 [in_i] [facility] weight 2022-07-20 09:15:00 189 [lb_av] [facility] temperature 2022-07-20 09:15:00 97.0 [degF] [facility] bmi 2022-07-20 09:15:00 33.48 kg/m2 [facility] blood pressure 2022-07-20 09:15:00 126 mm[Hg] [facility] - systolic [facility] blood pressure 2022-07-20 09:15:00 82 mm[Hg] [facility] - diastolic [facility] height 2022-07-13 10:30:00 63 [in_i] [facility] weight 2022-07-13 10:30:00 189 [lb_av] [facility] temperature 2022-07-13 10:30:00 97.9 [degF] [facility] bmi 2022-07-13 10:30:00 33.48 kg/m2 [facility] blood pressure 2022-07-13 10:30:00 122 mm[Hg] [facility] - systolic [facility] blood pressure 2022-07-13 10:30:00 82 mm[Hg] [facility] - diastolic [facility] height 2022-07-06 09:00:00 63 [in_i] [facility] weight 2022-07-06 09:00:00 189 [lb_av] [facility] bmi 2022-07-06 09:00:00 33.48 kg/m2 [facility] blood pressure 2022-07-06 09:00:00 122 mm[Hg] [facility] - systolic [facility] blood pressure 2022-07-06 09:00:00 82 mm[Hg] [facility] - diastolic [facility] Systolic blood 2022-06-29 19:53:00 119 mm[Hg] Univer sity of pressure [facility] Diastolic blood 2022-06-29 19:53:00 78 mm[Hg] Unive rsity of pressure [facility] Heart rate 2022-06-29 19:53:00 60 /min [facility] Respiratory rate 2022-06-29 19:53:00 13 /min Univ ersity of [facility] Oxygen saturation in 2022-06-29 19:53:00 96 /min University of Arterial blood by [place] [facility] melinda Pulse oximetry Branch Body temperature 2022-06-29 19:28:00 36.22 Agnes [facility] weight 2022-06-24 14:00:00 87.544 kg [facility] BMI 2022-06-24 14:00:00 34.20 kg/m2 [facility]i [facility] of [facility] Systolic blood 2022-06-29 16:42:00 113 mm[Hg] Univer sity of [facility] Diastolic blood 2022-06-29 16:42:00 87 mm[Hg] Unive rsity of pressure [facility] Heart rate 2022-06-29 16:42:00 59 /min [facility] Body temperature 2022-06-29 16:42:00 36.5 Agnes [facility] Respiratory rate 2022-06-29 16:42:00 17 /min [facility] Oxygen saturation in 2022-06-29 16:42:00 94 /min [facility] of Arterial blood by [place] melinda Pulse oximetry Branch Body weight 2022-06-24 14:00:00 87.544 kg [facility] BMI 2022-06-24 14:00:00 34.20 kg/m2 [facility] height 2022-05-27 14:45:00 63 [in_i] [facility] weight 2022-05-27 14:45:00 193 [lb_av] [facility] temperature 2022-05-27 14:45:00 98.0 [degF] [facility] bmi 2022-05-27 14:45:00 34.18 kg/m2 [facility] blood pressure 2022-05-27 14:45:00 120 mm[Hg] [facility] - systolic [facility] blood pressure 2022-05-27 14:45:00 82 mm[Hg] [facility] - diastolic [facility] height 2021-09-29 09:30:00 63 [in_i] [facility] weight 2021-09-29 09:30:00 200 [lb_av] [facility] bmi 2021-09-29 09:30:00 35.42 kg/m2 [facility] blood pressure 2021-09-29 09:30:00 120 mm[Hg] [facility] - systolic [facility] blood pressure 2021-09-29 09:30:00 80 mm[Hg] [facility] - diastolic [facility] height 2021-09-22 09:30:00 63 [in_i] [facility] weight 2021-09-22 09:30:00 200 [lb_av] [facility] temperature 2021-09-22 09:30:00 97.1 [degF] [facility] bmi 2021-09-22 09:30:00 35.42 kg/m2 [facility] blood pressure 2021-09-22 09:30:00 122 mm[Hg] [facility] - systolic [facility] blood pressure 2021-09-22 09:30:00 78 mm[Hg] [facility] - diastolic [facility] height 2021-09-15 09:00:00 63 [in_i] [facility] weight 2021-09-15 09:00:00 200 [lb_av] [facility] temperature 2021-09-15 09:00:00 97.5 [degF] [facility] bmi 2021-09-15 09:00:00 35.42 kg/m2 [facility] - [facility] blood pressure 2021-09-15 09:00:00 132 mm[Hg] [facility] - systolic [facility] blood pressure 2021-09-15 09:00:00 84 mm[Hg] [facility] - diastolic [facility] height 2021-07-21 10:00:00 63 [in_i] [facility] weight 2021-07-21 10:00:00 200.8 [lb_av] Common [facility] temperature 2021-07-21 10:00:00 97.5 [degF] [facility] bmi 2021-07-21 10:00:00 35.57 kg/m2 [facility] blood pressure 2021-07-21 10:00:00 116 mm[Hg] [facility] - systolic [facility] blood pressure 2021-07-21 10:00:00 84 mm[Hg] Common [facility] - diastolic [facility] Procedures Procedure Date / Time Performing Clinician Source Performed COLONOSCOPY (ENDO) 2022-06-29 18:54:40 Erik Snell [facility] COLONOSCOPY (ENDO) 2022-06-29 18:54:40 Erik Snell [facility] COLONOSCOPY 2022-06-29 18:53:00 Marc Rowan [facility] ASSIGNMENT OF BENEFITS 2022-06-28 14:43:08 Doctor Unassigned, No General acute hospital Encounters Start End Encounter Admission Attending Care Care Encounter Source Date/Time Date/Time Type Type Clinicians Facility Department ID 2022-06-14 Outpatient R [facility] [id number] Univers 09:44:59 MARC Andersen [facility] 2022-06-03 Outpatient [facility] [id number] Common 16:17:01 [facility] 2021-12-16 Outpatient STLMLC STLMLC [id number] Common 12:28:26 [id number] [facility] 2021-12-16 Outpatient STLMLC STL[facility]C [id number] Common 12:13:09 [id number] [facility] 2021-12-16 Outpatient STLMLC STLMLC [id number] Common 11:42:39 [id number] [facility] 2021-12-16 Outpatient STLMLC STL[facility]C [id number] Common 11:42:09 [id number] [facility] 2022-07-20 2022-07-20 (IN/ASP) STLMLC STLMLC [id number] C ommon 00:00:00 00:00:00 INJ ASP [facility] 2022-07-13 2022-07-13 (IN/ASP) STLMLC STLMLC [id number] C ommon 00:00:00 00:00:00 INJ ASP [facility] 2022-07-06 2022-07-06 (IN/ASP) STLMLC STLMLC [id number] C ommon 00:00:00 00:00:00 INJ ASP [facility] 2022-06-29 2022-06-29 Outpatient R [facility] [id number] Univers 11:38:00 15:09:00 MARC Andersen [facility] 2022-06-29 2022-06-29 [facility] [id number] Univers 11:38:00 15:09:00 Encounter Marc andersen [id number] [facility] [id number] [place] [id number] [place] 2022-06-29 2022-06-29 Surgery [facility] 1.2.840.114 [id number] Univers 12:55:00 13:49:00 Marc andersen [id number] [facility] [id number] [id number] [facility] 020 Branch 2022-06-28 2022-06-28 Laboratory Only, Adc Test [facility] 1.2.840. [id number] Univers 09:15:00 09:30:00 Only Marc Rowan ANGLERASHAAD 350.1.1 3.10 [facility] [id number] [id number] [facility] [address] 2022-06-28 2022-06-28 Outpatient R [facility] [id number] Univers 09:15:00 09:15:00 [id number] ity of [facility] 2022-06-28 2022-06-28 Outpatient R [facility] [id number] Univers 09:15:00 09:15:00 MARC Andersen [facility] 2022-06-28 2022-06-28 Orders Doctor GUY [id number] [id number] Univers 00:00:00 00:00:00 Only Unassigned, MATTHEW [id number] [facility] [id number] [place] as [id number] [facility] 009 Branch 2022-06-14 2022-06-14 Laboratory Only, Adc Test [facility] 1.2.840. 114 [id number] Univers 09:30:00 09:45:00 Only Marc Rowan ANGLERASHAAD 350.1.1 3.10 [facility] [id number] [id number] [facility] [address] 2022-06-14 2022-06-14 Outpatient R [facility] [id number] Univers 09:30:00 09:30:00 MARC Andersen o f [facility] 2022-06-03 2022-06-03 (TEL) [facility] [id number] Co mmon 00:00:00 00:00:00 [facility] 2022-05-27 2022-05-27 OFFICE STLMLC STLMLC [id number] Co mmon 00:00:00 00:00:00 VISIT [facility] PT [facility] 4 [facility] 2022-03-30 2022-03-30 (TEL) [facility] STL[facility]C [id number] Co mmon 00:00:00 00:00:00 [facility] 2021-09-29 2021-09-29 (IN/ASP) STLMLC STLMLC [id number] C ommon 00:00:00 00:00:00 INJ ASP [facility] 2021-09-22 2021-09-22 (IN/ASP) [facility]LML[facility] STLMLC [id number] C ommon 00:00:00 00:00:00 INJ ASP [facility] 2021-09-15 2021-09-15 (IN/ASP) STLMLC STLMLC [id number] C ommon 00:00:00 00:00:00 INJ ASP [facility] 2021-07-21 2021-07-21 OFFICE [facility] STL[facility]C [id number] Co mmon 00:00:00 00:00:00 VISIT [facility] PT [address] 2021-04-21 2021-04-21 Outpatient [facility] [id number] Common 00:00:00 00:00:00 [facility] 2021-01-26 2021-01-26 Outpatient [facility] [id number] Common 00:00:00 00:00:00 [facility] 2021-01-19 2021-01-19 Outpatient [facility] STL[facility]C [id number] Common 00:00:00 00:00:00 [facility] 2021-01-12 2021-01-12 Outpatient [facility] [id number] Common 00:00:00 00:00:00 [facility] 2020-12-30 2020-12-30 Outpatient [facility] [id number] Common 00:00:00 00:00:00 [facility] 2020-12-30 2020-12-30 Outpatient [facility] [id number] Common 00:00:00 00:00:00 [facility] 2020-12-30 2020-12-30 Outpatient [facility] [id number] Common 00:00:00 00:00:00 [facility] Results This patient has no known results.
[2022-09-02] MEDS ORDERED: FENTANYL CITR 100 MCG/2 ML ONE (22:26)
[2022-09-02 22:46] LABS: Absolute Lymphocytes (CBC) 1.2 K/uL (0.7-4.9); Lymphocytes % 18.3 % (15.3-44.8); MPV 7.8 fL (7.6-11.3); RBC Red Blood Cell Count 4.36 M/uL (3.86-4.86)
--- NOTE | 2022-09-02 23:04 | RAD REPORT ---
EXAM DESCRIPTION: US - Extremity Venous Uni Ltd - 09/02/2022 10:53 pm CLINICAL HISTORY: PAIN Leg swelling and edema. COMPARISON: No comparisons FINDINGS: Right lower extremity venous system was interrogated with Doppler technique. Normal flow, compressibility and augmentation was noted. There is no DVT present. IMPRESSION: No evidence of right lower extremity deep venous thrombosis.
[2022-09-02 23:21] LABS: Magnesium 2.2 mg/dL (1.8-2.4); Potassium 3.4 mmol/L (3.5-5.1)
--- NOTE | 2022-09-02 23:23 | ER ---
Nurse's Notes [facility] Name: Ally Willams Age: 67 yrs Sex: Female : 1955 Arrival Date: 09/02/2022 Time: 21:23 Bed 23 Private MD: Diagnosis: Cellulitis of right lower limb Presentation: 09/02 21:43 Chief complaint: Patient states: "I have a staph infection on my leg and it's getting as6 worse. I have been taking antibiotics since Tuesday but the pain and redness are getting worse. I also had a fever yesterday". Coronavirus screen: At this time, the client does not indicate any symptoms associated with coronavirus-19. Ebola Screen: No symptoms or risks identified at this time. Initial Sepsis Screen: Does the patient meet any 2 criteria? No. Patient's initial sepsis screen is negative. Does the patient have a suspected source of infection? Yes: Skin breakdown/wound. Risk Assessment: Do you want to hurt yourself or someone else? Patient reports no desire to harm self or others. Onset of symptoms was August 31, 2022. 21:43 Method Of Arrival: Ambulatory as6 21:43 Acuity: DINA 3 as6 Triage Assessment: 09/03 01:23 General: Appears in no apparent distress. uncomfortable, well groomed, Behavior is jj7 calm, cooperative, appropriate for age. 01:26 Pain: Denies pain. jj7 Historical: - Allergies: 09/02 21:49 No Known Allergies; as6 - PMHx: 21:49 Hypertensive disorder; Hypothyroidism; Hypercholesterolemia; as6 - PSHx: 21:49 knee; section; lap band; as6 - Immunization history:: Client reports receiving the 2nd dose of the Covid vaccine, moderna. - Social history:: Smoking status: Patient denies any tobacco usage or history of. Screenin/14 00:07 Abuse screen: Denies threats or abuse. Nutritional screening: No deficits noted. jj7 Tuberculosis screening: No symptoms or risk factors identified. Fall Risk None identified. Vital Signs: 09/02 21:43 BP 129 / 83; Pulse 73; Resp 18 S; Temp 98.5; Pulse Ox 99% on R/A; Weight 85.28 kg (R); as6 Height 5 ft. 3 in. (160.02 cm) (R); Pain 5/10; 23:07 BP 119 / 76; Pulse 79; Resp 17; Pulse Ox 99% ; Pain 0/10; jj7 09/03 00:06 BP 116 / 81; Pulse 75; Resp 17; Pulse Ox 100% ; jj7 01:00 BP 104 / 69; Pulse 80; Resp 16; Temp 98.4; Pulse Ox 99% ; Pain 0/10; jj7 09/02 21:43 Body Mass Index 33.30 (85.28 kg, 160.02 cm) as6 ED Course: 09/02 21:23 Patient arrived in ED. ja2 21:48 Triage completed. as6 21:50 Arm band placed on. as6 21:52 David Ellis PA is PHCP. cp 21:52 David Byers MD is Attending Physician. cp 22:04 Elidia An, DAYAN is Primary Nurse. jj7 22:35 Inserted saline lock: 20 gauge in left antecubital area, using aseptic technique. Blood jj7 collected. 22:40 Procalcitonin Sent. jj7 22:41 Lactate Sent. jj7 22:41 Wound Culture Sent. jj7 22:41 Basic Metabolic Panel Sent. jj7 22:41 CBC with Diff Sent. jj7 22:41 Magnesium Sent. jj7 22:41 NT PRO-BNP Sent. jj7 23:10 US Extremity Venous Unilateral Ltd Sent. jj7 23:10 US Extrmty Nonvasular Limited Sent. jj7 23:21 Johnny Olivia MD is Hospitalizing Provider. cp 23:23 SARS RAPID Sent. jj7 09/03 01:24 No provider procedures requiring assistance completed. jj7 01:25 Patient has correct armband on for positive identification. Bed in low position. Call jj7 light in reach. Side rails up X2. 01:52 Patient admitted, IV remains in place. jj7 Administered Medications: 09/02 22:32 Drug: fentaNYL (PF) 25 mcg Route: IVP; Site: left antecubital; jj7 22:40 Follow up: Response: No adverse reaction; Pain is decreased jj7 09/03 00:05 Dru grams of (Cefepime 2 grams, NS 0.9% 100 ml) Route: IVPB; Rate: 200 ml/hr; jj7 Infused Over: 30 mins; Site: left antecubital; 00:05 Drug: Doxycycline 100 mg Route: PO; jj7 Medication: 01:26 VIS not applicable for this client. jj7 Outcome: 09/02 23:22 Decision to Hospitalize by Provider. aram 09/03 01:24 Condition: improved j7 01:51 Admitted to Med/surg accompanied by nurse, via wheelchair, room 429, Report called to sanchez MONCADA RN 01:51 Instructed on the need for admit. 02:17 Patient left the ED. jj7 Signatures: David Ellis PA PA cp Alexander, Jessica ja2 Slawson, Ashby, RN RN as6 Elidia An RN RN jj7
--- NOTE | 2022-09-02 23:23 | EDPHYS ---
Physician Documentation [facility] Name: Ally Willams Age: 67 yrs Sex: Female : 1955 Arrival Date: 09/02/2022 Time: 21:23 Bed 23 Private MD: ED Physician David Byers HPI: 09/02 22:10 This 67 yrs old Female presents to ER via Ambulatory with complaints of cp INFECTION ON LEG. 22:10 The patient presents with pain, that is acute, swelling, tenderness, cellulitis. The cp complaints affect the right bryant. 22:10 Context: resulted from an unknown cause, the patient can fully bear weight, the patient cp is able to ambulate, with mild difficulty. Onset: The symptoms/episode began/occurred last week. Patient reports pcp started her on oral Bactrim and Rifampin since visit 2 days ago. Patient reports redness started while on vacation in [place] last week after [place]. Historical: - Allergies: 21:49 No Known Allergies; as6 - PMHx: 21:49 Hypertensive disorder; Hypothyroidism; Hypercholesterolemia; as6 - PSHx: 21:49 knee; section; lap band; as6 - Immunization history:: Client reports receiving the 2nd dose of the Covid vaccine, moderna. - Social history:: Smoking status: Patient denies any tobacco usage or history of. ROS: 22:15 Constitutional: Negative for body aches, chills, fever, poor PO intake. cp 22:15 Eyes: Negative for injury, pain, redness, and discharge. cp 22:15 Cardiovascular: Negative for chest pain, palpitations. 22:15 Respiratory: Negative for cough, shortness of breath, wheezing. 22:15 Abdomen/GI: Negative for abdominal pain, nausea, vomiting, and diarrhea. 22:15 Skin: Positive for erythema, swelling, of the right bryant. 22:15 Neuro: Negative for altered mental status, dizziness, headache, syncope, weakness. 22:15 All other systems are negative. Exam: 22:20 Constitutional: The patient appears in no acute distress, alert, awake, non-toxic, well cp developed, well nourished, uncomfortable. 22:20 Head/Face: Normocephalic, atraumatic. cp 22:20 Eyes: Periorbital structures: appear normal, Conjunctiva: normal, no exudate, no injection, Sclera: no appreciated abnormality, Lids and lashes: appear normal, bilaterally. 22:20 ENT: External ear(s): are unremarkable, Nose: is normal, Mouth: Lips: moist, Oral mucosa: moist, Posterior pharynx: Airway: no evidence of obstruction, patent. 22:20 Chest/axilla: Inspection: normal. 22:20 Cardiovascular: Rate: normal, Rhythm: regular, Pulses: Pulses are 2+ in right dorsalis pedis artery. 22:20 Respiratory: the patient does not display signs of respiratory distress, Respirations: normal, no use of accessory muscles, no retractions, labored breathing, is not present, Breath sounds: are clear throughout, no decreased breath sounds, no stridor, no wheezing. 22:20 Abdomen/GI: Exam negative for discomfort, distension, guarding, Inspection: abdomen appears normal. 22:20 Back: pain, is absent, ROM is normal. 22:20 Skin: cellulitis, that is moderate, well demarcated, on the right bryant, induration, that is mild is noted, located on the right bryant. 22:20 Neuro: Orientation: to person, place \T\ time. Mentation: is normal, Motor: moves all fours, strength is normal, Sensation: is normal. 23:17 ECG was reviewed by the Attending Physician. cp Vital Signs: 21:43 BP 129 / 83; Pulse 73; Resp 18 S; Temp 98.5; Pulse Ox 99% on R/A; Weight 85.28 kg (R); as6 Height 5 ft. 3 in. (160.02 cm) (R); Pain 5/10; 23:07 BP 119 / 76; Pulse 79; Resp 17; Pulse Ox 99% ; Pain 0/10; jj7 09/03 00:06 BP 116 / 81; Pulse 75; Resp 17; Pulse Ox 100% ; jj7 01:00 BP 104 / 69; Pulse 80; Resp 16; Temp 98.4; Pulse Ox 99% ; Pain 0/10; jj7 09/02 21:43 Body Mass Index 33.30 (85.28 kg, 160.02 cm) as6 MDM: 09/02 21:55 Patient medically screened. cp 23:00 Differential diagnosis: abscess, cellulitis, DVT, sepsis. cp 23:25 Data reviewed: vital signs, nurses notes, lab test result(s), EKG, radiologic studies, cp plain films, ultrasound, and as a result, I will admit patient, administer antibiotics Cefepime and Doxycycline. 23:25 Test interpretation: by ED physician or midlevel provider: ECG. Counseling: I had a cp detailed discussion with the patient and/or guardian regarding: the historical points, exam findings, and any diagnostic results supporting the discharge/admit diagnosis, lab results, radiology results, the need for further work-up and treatment in the hospital. Physician consultation: Rik KOHLI was called at 23:20, was contacted at 23:20, regarding admission, patient's condition, would like medications started, Cefepime and Doxycycline. 09/02 22:06 Order name: Basic Metabolic Panel 09/02 22:06 Order name: CBC with Diff 09/02 22:06 Order name: Magnesium cp 09/02 22:06 Order name: NT PRO-BNP 09/02 22:06 Order name: Lactate 09/02 22:06 Order name: Wound Culture 09/02 22:06 Order name: Procalcitonin 09/02 22:15 Order name: SARS RAPID la1 09/02 22:48 Order name: CBC with Automated Diff; Complete Time: 22:49 EDMS 09/02 23:20 Order name: Lactate; Complete Time: 23:21 EDMS 09/02 23:21 Order name: Basic Metabolic Panel; Complete Time: 23:43 EDMS 09/02 23:21 Order name: NT PRO-BNP; Complete Time: 23:43 EDMS 09/02 23:21 Order name: Magnesium; Complete Time: 23:43 EDMS 09/02 23:39 Order name: Procalcitonin; Complete Time: 23:43 EDMS 09/02 22:06 Order name: EKG; Complete Time: 22:08 09/02 22:06 Order name: Cardiac monitoring; Complete Time: 22:41 09/02 22:06 Order name: EKG - Nurse/Tech; Complete Time: 23:11 09/02 22:06 Order name: IV Saline Lock; Complete Time: 22:41 09/02 22:06 Order name: Labs collected and sent; Complete Time: 22:41 09/02 22:06 Order name: O2 Per Protocol; Complete Time: 22:41 cp 09/02 22:06 Order name: O2 Sat Monitoring; Complete Time: 22:41 cp 09/02 22:06 Order name: XRAY Tib Fib RIGHT cp 09/02 22:06 Order name: US Extremity Venous Unilateral Ltd cp 09/02 22:06 Order name: US Extrmty Nonvasular Limited cp 09/02 23:06 Order name: US; Complete Time: 23:16 EDMS 09/02 23:21 Interpretation: Report reviewed. cp 09/02 23:56 Order name: NPO as6 09/03 00:08 Order name: SARS-COV-2 Antigen Rapid; Complete Time: 01:49 EDMS EC:17 Rate is 61 beats/min. Rhythm is regular. NE interval is normal. QRS interval is normal. cp QT interval is normal. T waves are Inverted in lead aVR. Interpreted by me. Reviewed by me. Administered Medications: 22:32 Drug: fentaNYL (PF) 25 mcg Route: IVP; Site: left antecubital; jj7 22:40 Follow up: Response: No adverse reaction; Pain is decreased jj7 09/03 00:05 Dru grams of (Cefepime 2 grams, NS 0.9% 100 ml) Route: IVPB; Rate: 200 ml/hr; jj7 Infused Over: 30 mins; Site: left antecubital; 00:05 Drug: Doxycycline 100 mg Route: PO; jj7 Disposition Summary: 09/02/22 23:22 Hospitalization Ordered Hospitalization Status: Inpatient Admission cp Provider: Johnny Olivia [facility] cp Condition: Stable cp Problem: new cp Symptoms: have improved cp Bed/Room Type: Standard cp Room Assignment: 429(09/03/22 00:25) cg Diagnosis - Cellulitis of right lower limb cp Forms: - Medication Reconciliation Form cp - SBAR form cp Signatures: Dispatcher [employer] EDRik Corbin FNP-C FNP-Cla1 David Ellis PA PA cp Garcia, Cindy, RN RN cg Srinivas Albrecht RN RN as6 Elidia An RN RN jj7 Corrections: (The following items were deleted from the chart) 00:25 09/02 23:22 cp cg 09/03 20:17 10/13 22:10 Patient reports pcp started her on oral Bactrim and Rifampin since visit 2 cp days ago. cp
[2022-09-02] MEDS ORDERED: DOXYCYCLINE 100 MG CAP PO ONE (23:54)
[2022-09-02] MEDS ORDERED: CEFEPIME 2 GM VIAL ONE (23:54)
[2022-09-02] MEDS ORDERED: NA CHLORIDE 0.9% 100 ML IV ONE (23:55)
[2022-09-03 00:07] LABS: SARS-CoV-2 Antigen Rapid Res Negative (Negative)
--- NOTE | 2022-09-03 01:54 | P.HP ---
Certification for Inpatient Patient admitted to: Inpatient With expected LOS: >2 Midnights Patient will require the following post-hospital care: None Practitioner: I am a practitioner with admitting privileges, knowledge of patient current condition, hospital course, and medical plan of care. Services: Services provided to patient in accordance with Admission requirements found in Title 42 Section 412.3 of the Code of Federal Regulations <Rik Marlow - Last Filed: 09/03/22 01:50> Patient History Date of Service: 09/03/22 Reason for admission: Right lower extremity cellulitis History of Present Illness: 67-year-old female with history of hypertension, hypothyroidism, hyperlipidemia presents emergency department for concern for infection of her right leg. She recently went to [place] on August 21 and on August 25 she started noticed a small area of redness to the right lower extremity. Upon arriving home she was seen by her doctor on August 31 and prescribed rifampin and Bactrim for suspected cellulitis of the right lower extremity. Patient reports that the redness has been getting worse rather than better over the course last couple days and presented to the emergency department for evaluation. She is evaluated here in the emergency department her labs were unremarkable ultrasound of the right lower extremity was negative for DVT or obvious drainable fluid collection. She does have a rather large area of erythema to the distal right lower extremity tibia area with a central ulceration present. She administered antibiotics doxycycline/cefepime in the emergency department, ED provider wishes to admit patient for further evaluation and management of right lower extremity cellulitisfailed outpatient therapy. - Past Medical/Surgical History -: Hypertension -: Hyperlipidemia -: Hypothyroidism -: Right knee surgery -: -: Lap band Psychosocial/ Personal History: Patient is employed as a sales service promoter, lives at home with family - Family History Mother -: Cancer Sister -: Cancer - Social History Smoking Status: Never smoker Alcohol use: No CD- Drugs: No Caffeine use: Yes Place of Residence: Home <Rik Marlow - Last Filed: 09/03/22 01:50> Date of Service: 09/03/22 <Johnny Olivia - Last Filed: 09/03/22 09:56> Allergies No Known Allergies Allergy (Verified 04/20/19 08:58) Home Medications: Amlodipine [Norvasc] 10 mg PO DAILY 09/03/22 Escitalopram Oxalate [Lexapro] 10 mg PO DAILY 09/03/22 Levothyroxine [Synthroid] 125 mcg PO [id number] 09/03/22 Lisinopril/Hydrochlorothiazide [Lisinopril-Hctz 20-25 mg Tab] 1 each PO DAILY 09/03/22 Meloxicam [Mobic] 7.5 mg PO DAILY 09/03/22 Mupirocin Oint [Bactroban 2% Ointment] 1 appl TP TID 09/03/22 Rosuvastatin [Crestor] 10 mg PO BEDTIME 09/03/22 Smz./Tmp. [Bactrim Ds 800 MG/160 MG] 1 tab PO BID 09/03/22 rifAMPin [Rifampin] 300 mg PO BID 09/03/22 Review of Systems 10-point ROS is otherwise unremarkable Musculoskeletal: Foot Pain Integumentary: Rash, As per HPI <Rik Marlow - Last Filed: 09/03/22 01:50> Physical Examination - Physical Exam General: Alert, In no apparent distress, Oriented x3 HEENT: Atraumatic, PERRLA, Mucous membr. moist/pink, EOMI, Sclerae nonicteric Neck: Supple, 2+ carotid pulse no bruit, No LAD, Without JVD or thyroid abnormality Respiratory: Clear to auscultation bilaterally, Normal air movement Cardiovascular: Regular rate/rhythm, Normal S1 S2 Gastrointestinal: Normal bowel sounds, No tenderness Musculoskeletal: No tenderness Integumentary: Tenderness/swelling, Erythema Neurological: Normal speech, Normal strength at 5/5 x4 extr, Normal tone, Normal affect - Studies Laboratory Data (last 24 hrs) 09/02/22 22:35: WBC 6.30, Hgb 13.2, Hct 38.0, Plt Count 299 09/02/22 22:35: Sodium 136, Potassium 3.4 L, BUN 11, Creatinine 0.83, Glucose 102, Magnesium 2.2 <Rik Marlow - Last Filed: 09/03/22 01:50> - Studies Laboratory Data (last 24 hrs) 09/02/22 22:35: WBC 6.30, Hgb 13.2, Hct 38.0, Plt Count 299 09/02/22 22:35: Sodium 136, Potassium 3.4 L, BUN 11, Creatinine 0.83, Glucose 102, Magnesium 2.2 Microbiology Data (last 24 hrs): 09/02/22 22:30 Wound - Right Lower Leg Gram Stain - Final <Johnny Olivia - Last Filed: 09/03/22 09:56> Assessment and Plan - Plan Assessment: Cellulitis right lower extremityfailed outpatient therapy Hypertension Hypothyroidism Hyperlipidemia Plan: Cellulitis right lower extremityfailed outpatient therapy: Patient was on Bactrim/rifampin for the past 3 days without improvement, mild worsening noted. Continue antibiotics cefepime/doxycycline. There is a central ulceration present patient denies any known bites, stings to the area. General surgery consulted for evaluation of ulceration/cellulitis. Ultrasound negative for DVT or obvious drainable fluid collection. Patient does not meet criteria for sepsis at this time. Hypertension: Continue home meds Hypothyroidism: Continue home meds Hyperlipidemia: Continue home meds DVT PPX: SCD Code status: Full Discharge Plan: Home Plan to discharge in: 48 Hours - Advance Directives Does patient have a Living Will: No Does patient have a Durable POA for Healthcare: No - Code Status/Comfort Care Code Status Assessed: Yes (Full code) Critical Care: No Time Spent Managing Pts Care (In Minutes): 55 <Rik Marlow - Last Filed: 09/03/22 01:50> Physician Review: Patient Assessed, Agree with Above Assessment and Plan <Johnny Olivia - Last Filed: 09/03/22 09:56>
[2022-09-03] MEDS ORDERED: MORPHINE 2 MG/ML SYR IV PRN (02:12)
[2022-09-03] MEDS ORDERED: ONDANSETRON 4 MG/2 ML VIAL IV PRN (02:12)
[2022-09-03 02:33] VITALS: BMI 33.2
[2022-09-03] MEDS: Ringers Lactate 1,000 ML IV SCH ×3 (02:58→22:12)
[2022-09-03] MEDS: KCL 20 MEQ/100 mL IVPB 20 MEQ/100 ML BAG IV SCH ×2 (06:45→10:20)
[2022-09-03] MEDS ORDERED: PNEUMOCOCCAL VACCINE 0.5 ML IMVAC ONE (08:00)
[2022-09-03] MEDS ORDERED: INFLUENZA VACCINE (for 6+ mo) 0.5 ML DOSE IMVAC ONE (08:00)
[2022-09-03] MEDS: CEFEPIME 1 GM in NA CHLORIDE 0.9% 100 ML IV SCH ×2 (10:20→19:51)
[2022-09-03] MEDS: DOXYCYCLINE 100 MG in NA CHLORIDE 0.9% 100 ML IVPB SCH ×2 (10:21→20:59)
--- NOTE | 2022-09-03 11:40 | EKG ---
Test Date: 2022-09-02 Test Time: 23:13:49 Information Technology Architect: MEASUREMENT RESULTS: Intervals: Rate: 61 SD: 148 QRSD: 82 QT: 462 QTc: 465 [place]: P: 9 SD: 148 QRS: 27 T: 49 INTERPRETIVE STATEMENTS: Normal sinus rhythm Cannot rule out Anterior infarct, age undetermined Abnormal ECG Compared to ECG 04/20/2019 09:06:14 No significant changes Electronically Signed On 09-03-22 11:38:[address]
--- NOTE | 2022-09-03 12:32 | RAD REPORT ---
EXAM DESCRIPTION: US - Extremity Nonvascular Limited - 09/02/2022 10:53 pm CLINICAL HISTORY: SWELLING COMPARISON: No comparisons TECHNIQUE: Real-time sonographic evaluation of the area of interest was performed right bryant region. FINDINGS: Skin thickening is seen with subcutaneous inflammation and interstitial fluid. No well loc alized abscess seen. If there is continued concern for abscess, consider MRI of the region with contr ast.
[2022-09-03] MEDS: ACETAMINOPHEN 325 MG TABLET PO PRN ×2 (12:58→19:50)
--- NOTE | 2022-09-03 13:22 | RAD REPORT ---
EXAM DESCRIPTION: RAD - Tib Fib Right - 09/02/2022 11:18 pm CLINICAL HISTORY: PAIN COMPARISON: None. FINDINGS: 2 views of the right tibia/fibula. No acute fracture or dislocation. Normal osseous minera lization. Lateral soft tissue edema. Plantar calcaneal spur. Degenerative change. IMPRESSION: 1. No acute fracture or dislocation. Electronically signed by: En Cruz 09/03/2022 12:26 AM CDT Due to temporary technical issues with the PACS/Fluency reporting system, reports are being signed by the in house radiologists without review as a courtesy to insure prompt reporting. The interpreting radiologist is fully responsible for the content of the report.
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
[2022-09-03 21:31] VITALS: O2SAT 97
[2022-09-04] MEDS: Ringers Lactate 1,000 ML IV SCH (03:14)
[2022-09-04] MEDS: ACETAMINOPHEN 325 MG TABLET PO PRN (03:19)
[2022-09-04 04:52] LABS: Hematocrit 35.9 % (36.0-45.0); Lymphocytes % 16.5 % (15.3-44.8); MCV 89.9 fL (80-100); MPV 7.7 fL (7.6-11.3)
[2022-09-04 05:05] LABS: Albumin 2.9 g/dL (3.4-5.0); Bilirubin Total 0.2 mg/dL (0.2-1.0); Potassium 3.9 mmol/L (3.5-5.1); Protein, Total 6.6 g/dL (6.4-8.2)
[2022-09-04 08:22] VITALS: BP 121/71; TEMP 97
--- NOTE | 2022-09-04 08:35 | P.DS ---
Admission Date: 09/03/22 Discharge Date: 09/04/22 Disposition: ROUTINE DISCHARGE Discharge Condition: GOOD Reason for Admission: Right lower extremity cellulitis Brief History of Present Illness: Patient is 67 years of age admitted with right lower extremity cellulitis after a holiday trip she is doing much better/pain has resolved the erythema decreased no other complaints on examination the area of cellulitis is decreased signific antly patient is doing much better denies any other complaint vital signs stable no fever chills cultures are negative Hospital Course: Patient did well during the course of her stay was treated with IV antibiotics that it was time of discharge alert oriented responsive cooperative no obvious tenderness cultures negative vital signs all reviewed labs all normal patient was treated with rifampin and Bactrim as an outpatient has been changed to clindamycin for 7 days discharged to follow-up with primary care and Dr. Maria if needed Vital Signs/Physical Exam: Temp Pulse Resp BP Pulse Ox 98.0 F 57 16 124/74 96 09/04/22 04:00 09/04/22 04:00 09/04/22 04:00 09/04/22 04:00 09/04/22 04:00 Laboratory Data at Discharge: WBC 6.00 K/uL (4.3-10.9) 09/04/22 04:35 Hgb 12.4 g/dL (12.0-15.0) 09/04/22 04:35 Hct 35.9 % (36.0-45.0) L 09/04/22 04:35 Plt Count 281 K/uL (152-406) 09/04/22 04:35 Sodium 140 mmol/L (136-145) 09/04/22 04:35 Potassium 3.9 mmol/L (3.5-5.1) 09/04/22 04:35 BUN 6 mg/dL (7-18) L 09/04/22 04:35 Creatinine 0.60 mg/dL (0.55-1.3) 09/04/22 04:35 Glucose 101 mg/dL (74-106) 09/04/22 04:35 Magnesium 2.2 mg/dL (1.8-2.4) 09/02/22 22:35 Total Bilirubin 0.2 mg/dL (0.2-1.0) 09/04/22 04:35 AST 19 U/L (15-37) 09/04/22 04:35 ALT 42 U/L (12-78) 09/04/22 04:35 Alkaline Phosphatase 134 U/L (45-117) H 09/04/22 04:35 Home Medications: Amlodipine [Norvasc*] 10 mg PO DAILY 09/03/22 Escitalopram Oxalate [Lexapro] 10 mg PO DAILY 09/03/22 Levothyroxine [Synthroid*] 125 mcg PO [id number] 09/03/22 Lisinopril/Hydrochlorothiazide [Lisinopril-Hctz 20-25 mg Tab] 1 each PO DAILY 09/03/22 Meloxicam [Mobic*] 7.5 mg PO DAILY 09/03/22 Rosuvastatin [Crestor*] 10 mg PO BEDTIME 09/03/22 clindamycin HCL [Cleocin HCl] 300 mg PO QID 7 Days #28 tab 09/04/22 New Medications: clindamycin HCL [Cleocin HCl] 300 mg PO QID 7 Days #28 tab Followup: Erik Snell MD [Primary Care Provider] -
[2022-09-04] MEDS ORDERED: POTASSIUM CL SA 10 MEQ TAB PO ONE (09:00)
== END 2022-09-04 10:43 | disposition home or self-care (01) | DRG 603 ==
LOC: ER 21:17 → ERHOLD 09-03 00:04 → 4TH 09-03 01:56
PROVIDERS: ADMIT Internal Medicine; ATTEND Internal Medicine Sleep Medicine
DX: L03.115 Cellulitis of right lower limb (principal); L97.819 Non-pressure chronic ulcer of other part of right lower leg with unspecified severity; I10 Essential (primary) hypertension; E03.9 Hypothyroidism, unspecified; E78.00 Pure hypercholesterolemia, unspecified; Z98.84 Bariatric surgery status; Z79.899 Other long term (current) drug therapy; Z80.9 Family history of malignant neoplasm, unspecified
CPT/HCPCS: 36415; 76882; 80048; 80053; 83605; 83735; 83880; 84132; 84145; 85025; 87070; 87205; 87811; 93005; 93971; 96374; 96375; 99285; J0692; J3010; J3480; J7120